=== PATIENT | female | born 1970 | race Caucasian/White ===

== ENCOUNTER 2017-12-02 10:41 | Emergency (ER) | payer OTHER ==
[~2017-12-02] VITALS: Ht 165.1 cm; Wt 100.7 kg
[2017-12-02] MEDS ORDERED: ALBU90OI6 INH (10:54)
[2017-12-02] MEDS ORDERED: Prednisone20 MG PO (11:33)
[2017-12-02] MEDS ORDERED: DULERA 200 MCG/13 GM INH (11:33)
[2017-12-02] MEDS ORDERED: Albuterol2.5 MG/0.5 INH (11:33)
[2017-12-02] MEDS ORDERED: ALBU90OI INH (11:33)
== END 2017-12-02 11:40 | disposition home or self-care (01) ==
LOC: ER 10:41
DX: Z76.0 Encounter for issue of repeat prescription (principal); J45.909 Unspecified asthma, uncomplicated; Z88.8 Allergy status to other drugs, medicaments and biological substances; Z79.51 Long term (current) use of inhaled steroids
CPT/HCPCS: 99283

== ENCOUNTER 2018-04-29 08:31 | Emergency (ER) | payer OTHER ==
[~2018-04-29] VITALS: Ht 165.1 cm; Wt 94.8 kg
[~2018-04-29 08:31] MED LIST: ALBU90OI INH; ALBU90OI6 INH; Albuterol2.5 MG/0.5 INH; DULERA 200 MCG/13 GM INH; EPIPEN0.3 MG/0.3 IM; Prednisone20 MG PO; TRIA15CR3 TOP
[2018-04-29] MEDS ORDERED: Proventil5 MG/1 ML INH (09:25)
[2018-04-29] MEDS ORDERED: DULERA 200 MCG/13 GM INH (09:25)
[2018-04-29] MEDS ORDERED: ALBU90OI INH (09:25)
[2018-04-29] MEDS ORDERED: TRIA15CR3 TOP (09:25)
== END 2018-04-29 10:18 | disposition home or self-care (01) ==
LOC: ER 08:31
DX: J45.901 Unspecified asthma with (acute) exacerbation (principal); L30.9 Dermatitis, unspecified; Z91.14 Patient's other noncompliance with medication regimen; J44.9 Chronic obstructive pulmonary disease, unspecified; Z88.8 Allergy status to other drugs, medicaments and biological substances; Z79.899 Other long term (current) drug therapy
CPT/HCPCS: 94644; 99281-25

== ENCOUNTER 2018-07-22 06:44 | Emergency (ER) | payer OTHER ==
[~2018-07-22] VITALS: Ht 167.6 cm; Wt 89.8 kg
[~2018-07-22 06:44] MED LIST changes: +Accuneb1.25 MG/3 INH; +Proventil5 MG/1 ML INH; +Zithromax250 MG PO
[2018-07-22] MEDS ORDERED: ASPI325 PO (07:08)
[2018-07-22] MEDS ORDERED: DULERA 100 MCG/13 GM INH (07:08)
[2018-07-22] MEDS ORDERED: ALBU90OI6 INH (09:27)
[2018-07-22] MEDS ORDERED: Prednisone20 MG PO (09:27)
== END 2018-07-22 09:43 | disposition home or self-care (01) ==
LOC: ER 06:44
DX: R05 Cough (principal); J44.1 Chronic obstructive pulmonary disease with (acute) exacerbation; Z88.8 Allergy status to other drugs, medicaments and biological substances; Z79.899 Other long term (current) drug therapy; Z79.82 Long term (current) use of aspirin; I10 Essential (primary) hypertension
CPT/HCPCS: 71046; 94640; 99283-25

== ENCOUNTER 2018-09-03 19:16 | Emergency (ER) | payer OTHER ==
[~2018-09-03] VITALS: Ht 165.1 cm; Wt 90.7 kg
[~2018-09-03 19:16] MED LIST changes: +ASPI325 PO; +DULERA 100 MCG/13 GM INH
[2018-09-03] MEDS ORDERED: ALBU90OI INH (21:22)
[2018-09-03] MEDS ORDERED: PRED10 PO (21:22)
[2018-09-03] MEDS ORDERED: Cyclobenzaprine5 MG PO (21:22)
== END 2018-09-03 21:51 | disposition home or self-care (01) ==
LOC: ER 19:16
DX: J45.901 Unspecified asthma with (acute) exacerbation (principal)
CPT/HCPCS: 71046; 94640; 99283-25

== ENCOUNTER 2019-01-01 07:38 | Emergency (ER) | payer OTHER ==
[~2019-01-01] VITALS: Ht 167.6 cm; Wt 96.2 kg
[~2019-01-01 07:38] MED LIST changes: +Cyclobenzaprine5 MG PO; +PRED10 PO
[2019-01-01 09:06] LABS: BASOPHILS ABSOLUTE AUTO 0.06 K/mm3 (0.00-0.23); BASOPHILS PERCENT AUTO 1 % (0-2); EOSINOPHILS ABSOLUTE AUTO 0.21 K/mm3 (0.00-0.68); EOSINOPHILS PERCENT AUTO 3 % (0-6); Hemoglobin 12.5 g/dL (11.5-16.0); IMMATURE GRAN ABSOLUTE AUTO 0.02 K/mm3 (0.00-0.10); IMMATURE GRAN PERCENT AUTO 0 % (0-1); LYMPHOCYTES ABSOLUTE AUTO 1.59 K/mm3 (0.84-5.20); LYMPHOCYTES PERCENT AUTO 25 % (21-46); MONOCYTES ABSOLUTE AUTO 0.77 K/mm3 (0.16-1.47); MONOCYTES PERCENT AUTO 12 % (4-13); Mean Corpuscular HGB 28.4 pg (26.0-34.0); Mean Corpuscular HGB Conc 32.1 g/dL (31.5-36.5); Mean Corpuscular Volume 89 fL (80-100); Mean Platelet Volume 12.3 fL (9.1-12.4); NEUTROPHILS ABSOLUTE AUTO 3.68 K/mm3 (1.96-9.15); NEUTROPHILS PERCENT AUTO 58 % (41-73); Platelet Count 289 K/mm3 (150-400); RDW Coefficient Variation 14.2 % (11.7-14.2); White Blood Cell Count 6.33 K/mm3 (4.00-11.30)
[2019-01-01 09:16] LABS: Alanine Aminotransfer (ALT/SGP 19 U/L (12-78); Albumin, Blood 3.4 g/dL (3.4-5.0); Alk Phos 70 U/L (50-136); Anion Gap 7 mmol/L (6-16); Aspartate Aminotrans (AST/SGOT 15 U/L (12-37); Bilirubin, Total 0.2 mg/dL (0.1-1.0); Blood Urea Nitrogen 13 mg/dL (8-24); Bun/Creatinine Ratio 20.3 (12.0-20.0); CO2, Blood 26 mmol/L (21-32); Calcium, Blood 8.4 mg/dL (8.5-10.1); Chloride, Blood 107 mmol/L (98-108); Creatinine, Blood 0.64 mg/dL (0.40-1.00); Globulin, Blood 3.4 g/dL (2.2-4.0); Glomerular Filtration Rate >60 (60-); Glucose, Blood 97 mg/dL (70-99); Potassium, Blood 3.7 mmol/L (3.5-5.5); Sodium, Blood 140 mmol/L (136-145); Total Protein, Blood 6.8 g/dL (6.4-8.2); Troponin I <0.015 ng/mL (0.000-0.040)
[2019-01-01] MEDS ORDERED: Prednisone20 MG PO (09:38)
[2019-01-01] MEDS ORDERED: ALBU90OI6 INH (09:38)
[2019-01-01] MEDS ORDERED: DULERA 100 MCG/13 G1 INH (09:38)
[2019-01-01] MEDS ORDERED: Proventil5 MG/1 ML INH (09:51)
== END 2019-01-01 10:15 | disposition home or self-care (01) ==
LOC: ER 07:38
PROVIDERS: Emergency Medicine
DX: J45.909 Unspecified asthma, uncomplicated (principal); I10 Essential (primary) hypertension; Z88.8 Allergy status to other drugs, medicaments and biological substances; Z79.899 Other long term (current) drug therapy
CPT/HCPCS: 80053; 84484; 85025; 93005; 93010; 94644; 96361; 96374; 99283-25; J2930; J7030

== ENCOUNTER 2019-03-22 09:02 | Emergency (ER) | payer OTHER ==
[~2019-03-22] VITALS: Ht 167.6 cm; Wt 81.7 kg
[~2019-03-22 09:02] MED LIST changes: +DULERA 100 MCG/13 G1 INH
[2019-03-22] MEDS ORDERED: ALBU90OI INH (11:12)
[2019-03-22] MEDS ORDERED: DULERA 100 MCG/13 G1 INH (11:12)
[2019-03-22] MEDS ORDERED: Ventolin5 MG/1 ML INH (11:12)
== END 2019-03-22 11:28 | disposition home or self-care (01) ==
LOC: ER 09:02
DX: J45.901 Unspecified asthma with (acute) exacerbation (principal); Z76.0 Encounter for issue of repeat prescription; Z88.8 Allergy status to other drugs, medicaments and biological substances; Z79.899 Other long term (current) drug therapy; I10 Essential (primary) hypertension; J44.9 Chronic obstructive pulmonary disease, unspecified
CPT/HCPCS: 94644; 99283-25

== ENCOUNTER 2019-04-22 16:52 | Emergency (ER) | payer OTHER ==
[~2019-04-22] VITALS: Ht 167.6 cm; Wt 99.8 kg
[~2019-04-22 16:52] MED LIST changes: +Ventolin5 MG/1 ML INH
[2019-04-22] MEDS ORDERED: Prednisone20 MG PO (18:08)
[2019-04-22] MEDS ORDERED: ALBU90OI INH (18:08)
[2019-04-22] MEDS ORDERED: EPIPEN 2-P0.3 MG/0.3 IM (18:08)
== END 2019-04-22 18:20 | disposition home or self-care (01) ==
LOC: ER 16:52
DX: L50.9 Urticaria, unspecified (principal); J44.9 Chronic obstructive pulmonary disease, unspecified; I10 Essential (primary) hypertension; Z88.8 Allergy status to other drugs, medicaments and biological substances; Z79.899 Other long term (current) drug therapy; Z79.52 Long term (current) use of systemic steroids
CPT/HCPCS: 94640; 99283-25; J1100; Q0163

== ENCOUNTER 2019-08-11 12:25 | Emergency (ER) | payer OTHER ==
[~2019-08-11] VITALS: Ht 165.1 cm; Wt 81.7 kg
[~2019-08-11 12:25] MED LIST changes: +EPIPEN 2-P0.3 MG/0.3 IM
[2019-08-11] MEDS ORDERED: EPIPEN 2-P0.3 MG/0.3 IM (13:01)
[2019-08-11] MEDS ORDERED: Mupirocin22 GM TOP (13:01)
[2019-08-11] MEDS ORDERED: ALBU90OI INH (13:01)
[2019-08-11] MEDS ORDERED: ALBU2.5V5 NEB (13:01)
[2019-08-11] MEDS ORDERED: DULERA 100 MCG/13 GM INH (13:01)
== END 2019-08-11 13:16 | disposition home or self-care (01) ==
LOC: ER 12:25
DX: J45.909 Unspecified asthma, uncomplicated (principal); Z76.0 Encounter for issue of repeat prescription; I10 Essential (primary) hypertension; Z88.8 Allergy status to other drugs, medicaments and biological substances; Z79.51 Long term (current) use of inhaled steroids; Z79.899 Other long term (current) drug therapy
CPT/HCPCS: 99281

== ENCOUNTER 2019-10-10 14:27 | Emergency (ER) | payer OTHER ==
[~2019-10-10] VITALS: Ht 167.6 cm; Wt 96.6 kg
[~2019-10-10 14:27] MED LIST changes: +ALBU2.5V5 NEB; +Mupirocin22 GM TOP
[2019-10-10] MEDS ORDERED: PRED20 PO (15:25)
[2019-10-10] MEDS ORDERED: ALBU90OI INH (15:25)
[2019-10-10] MEDS ORDERED: DULERA 200 MCG/13 GM INH (15:25)
[2019-10-10] MEDS ORDERED: ALBU2.5V5 INH (15:25)
== END 2019-10-10 15:49 | disposition home or self-care (01) ==
LOC: ER 14:27
DX: J45.909 Unspecified asthma, uncomplicated (principal); Z88.8 Allergy status to other drugs, medicaments and biological substances; Z79.899 Other long term (current) drug therapy; Z79.52 Long term (current) use of systemic steroids; I10 Essential (primary) hypertension
CPT/HCPCS: 94640; 99284-25; J7512

== ENCOUNTER 2020-01-01 11:15 | Emergency (ER) | payer OTHER ==
[~2020-01-01] VITALS: Ht 167.6 cm; Wt 90.7 kg
[~2020-01-01 11:15] MED LIST changes: +ALBU2.5V5 INH; +PRED20 PO
[2020-01-01 13:45] LABS: Alanine Aminotransfer (ALT/SGP 43 U/L (12-78); Albumin, Blood 3.4 g/dL (3.4-5.0); Albumin/Globulin Ratio 0.9 (0.8-1.8); Alk Phos 64 U/L (50-136); Anion Gap 4 mmol/L (6-16); Aspartate Aminotrans (AST/SGOT 34 U/L (12-37); Bilirubin, Total 0.3 mg/dL (0.1-1.0); Blood Urea Nitrogen 14 mg/dL (8-24); Bun/Creatinine Ratio 21.1 (12.0-20.0); CO2, Blood 26 mmol/L (21-32); Calcium, Blood 8.4 mg/dL (8.5-10.1); Chloride, Blood 108 mmol/L (98-108); Creatinine, Blood 0.66 mg/dL (0.40-1.00); Globulin, Blood 3.9 g/dL (2.2-4.0); Glomerular Filtration Rate >60 (60-); Glucose, Blood 132 mg/dL (70-99); Potassium, Blood 3.7 mmol/L (3.5-5.5); Sodium, Blood 138 mmol/L (136-145); Total Protein, Blood 7.3 g/dL (6.4-8.2)
[2020-01-01 14:08] LABS: BASOPHILS ABSOLUTE AUTO 0.04 K/mm3 (0.00-0.23); BASOPHILS PERCENT AUTO 0 % (0-2); EOSINOPHILS ABSOLUTE AUTO 0.11 K/mm3 (0.00-0.68); EOSINOPHILS PERCENT AUTO 1 % (0-6); Hematocrit 35.5 % (33.0-51.0); Hemoglobin 11.5 g/dL (11.5-16.0); IMMATURE GRAN ABSOLUTE AUTO 0.03 K/mm3 (0.00-0.10); IMMATURE GRAN PERCENT AUTO 0 % (0-1); LYMPHOCYTES ABSOLUTE AUTO 1.73 K/mm3 (0.84-5.20); LYMPHOCYTES PERCENT AUTO 18 % (21-46); MONOCYTES PERCENT AUTO 8 % (4-13); Mean Corpuscular HGB 29.5 pg (26.0-34.0); Mean Corpuscular HGB Conc 32.4 g/dL (31.5-36.5); Mean Corpuscular Volume 91 fL (80-100); Mean Platelet Volume 11.2 fL (9.1-12.4); NEUTROPHILS ABSOLUTE AUTO 6.84 K/mm3 (1.96-9.15); NEUTROPHILS PERCENT AUTO 72 % (41-73); Platelet Count 212 K/mm3 (150-400); RDW Coefficient Variation 15.8 % (11.7-14.2); RDW Standard Deviation 52.6 fL (35.1-46.3); White Blood Cell Count 9.55 K/mm3 (4.00-11.30)
[2020-01-01] MEDS ORDERED: FIORINAL 50-321 EACH PO (14:48)
[2020-01-01] MEDS ORDERED: PROC5 PO (14:48)
== END 2020-01-01 15:04 | disposition home or self-care (01) ==
LOC: ER 11:15
PROVIDERS: Physician Assistant
DX: R51 Headache (principal); Z88.8 Allergy status to other drugs, medicaments and biological substances; Z79.899 Other long term (current) drug therapy; J44.9 Chronic obstructive pulmonary disease, unspecified; I10 Essential (primary) hypertension; Z79.52 Long term (current) use of systemic steroids
CPT/HCPCS: 70450; 80053; 85025; 96361; 96374; 96375; 99285-25; J0780; J1200; J1885; J7030

== ENCOUNTER 2020-03-08 11:26 | Emergency (ER) | payer OTHER ==
[~2020-03-08] VITALS: Ht 167.6 cm; Wt 90.7 kg
[~2020-03-08 11:26] MED LIST changes: +FIORINAL 50-321 EACH PO; +PROC5 PO
[2020-03-08] MEDS ORDERED: SPACE CHAMBER1 EACH UD (12:50)
[2020-03-08] MEDS ORDERED: DELTASONE20 MG PO (12:50)
[2020-03-08] MEDS ORDERED: ALBU90OI INH (12:50)
== END 2020-03-08 13:00 | disposition home or self-care (01) ==
LOC: ER 11:26
DX: J45.901 Unspecified asthma with (acute) exacerbation (principal); I10 Essential (primary) hypertension; Z79.899 Other long term (current) drug therapy; Z88.8 Allergy status to other drugs, medicaments and biological substances
CPT/HCPCS: 94640; 99284; J7512

== ENCOUNTER 2020-06-06 13:08 | Inpatient (IN) | payer OTHER ==
[~2020-06-06] VITALS: Ht 167.6 cm; Wt 108.3 kg
[~2020-06-06 13:08] MED LIST changes: +DELTASONE20 MG PO; +SPACE CHAMBER1 EACH UD
[2020-06-06 14:01] LABS: BASOPHILS ABSOLUTE AUTO 0.04 K/mm3 (0.00-0.23); BASOPHILS PERCENT AUTO 0 % (0-2); EOSINOPHILS ABSOLUTE AUTO 0.11 K/mm3 (0.00-0.68); EOSINOPHILS PERCENT AUTO 1 % (0-6); Hematocrit 39.1 % (33.0-51.0); Hemoglobin 12.6 g/dL (11.5-16.0); IMMATURE GRAN ABSOLUTE AUTO 0.02 K/mm3 (0.00-0.10); IMMATURE GRAN PERCENT AUTO 0 % (0-1); LYMPHOCYTES ABSOLUTE AUTO 1.33 K/mm3 (0.84-5.20); LYMPHOCYTES PERCENT AUTO 15 % (21-46); MONOCYTES ABSOLUTE AUTO 0.64 K/mm3 (0.16-1.47); MONOCYTES PERCENT AUTO 7 % (4-13); Mean Corpuscular HGB Conc 32.2 g/dL (31.5-36.5); Mean Corpuscular Volume 90 fL (80-100); Mean Platelet Volume 12.4 fL (9.1-12.4); NEUTROPHILS ABSOLUTE AUTO 6.75 K/mm3 (1.96-9.15); NEUTROPHILS PERCENT AUTO 76 % (41-73); Platelet Count 226 K/mm3 (150-400); RDW Coefficient Variation 14.4 % (11.7-14.2); RDW Standard Deviation 47.9 fL (35.1-46.3); Red Blood Cell Count 4.35 M/mm3 (3.80-5.20); White Blood Cell Count 8.89 K/mm3 (4.00-11.30)
[2020-06-06 14:17] LABS: Alanine Aminotransfer (ALT/SGP 11 U/L (12-78); Albumin, Blood 3.2 g/dL (3.4-5.0); Albumin/Globulin Ratio 0.8 (0.8-1.8); Alk Phos 70 U/L (50-136); Anion Gap 7 mmol/L (6-16); Aspartate Aminotrans (AST/SGOT 5 U/L (12-37); Bilirubin, Total 0.1 mg/dL (0.1-1.0); Blood Urea Nitrogen 10 mg/dL (8-24); Bun/Creatinine Ratio 13.7 (12.0-20.0); CO2, Blood 25 mmol/L (21-32); Calcium, Blood 8.6 mg/dL (8.5-10.1); Chloride, Blood 108 mmol/L (98-108); Creatinine, Blood 0.73 mg/dL (0.40-1.00); Globulin, Blood 4.2 g/dL (2.2-4.0); Glomerular Filtration Rate >60 (60-); Glucose, Blood 121 mg/dL (70-99); Potassium, Blood 3.5 mmol/L (3.5-5.5); Sodium, Blood 140 mmol/L (136-145); Total Protein, Blood 7.4 g/dL (6.4-8.2); Troponin I <0.015 ng/mL (0.000-0.040)
[2020-06-06] MEDS ORDERED: DULERA 200 MCG-13 GM INH (20:05)
[2020-06-06] MEDS ORDERED: FLUT1DIS5 INH (21:55)
--- NOTE | 2020-06-06 22:33 | NUR ---
NEW ADMIT PT ARRIVED TO FLOOR AT 2223. TRANSFERED 1 ASSIST TO NEW BED, SERVICE DOG AT BEDSIDE, PT REPORTS SERVICE DOG IS FOR HTN & THAT SHE HAS PAPER WORK IN HER [place] FOR DOG. ORIENTED TO CALL LIGHT.
[2020-06-07 05:03] LABS: BASOPHILS ABSOLUTE AUTO 0.04 K/mm3 (0.00-0.23); BASOPHILS PERCENT AUTO 1 % (0-2); EOSINOPHILS ABSOLUTE AUTO 0.15 K/mm3 (0.00-0.68); EOSINOPHILS PERCENT AUTO 2 % (0-6); Hematocrit 33.8 % (33.0-51.0); Hemoglobin 10.9 g/dL (11.5-16.0); IMMATURE GRAN ABSOLUTE AUTO 0.02 K/mm3 (0.00-0.10); IMMATURE GRAN PERCENT AUTO 0 % (0-1); LYMPHOCYTES ABSOLUTE AUTO 1.46 K/mm3 (0.84-5.20); LYMPHOCYTES PERCENT AUTO 23 % (21-46); MONOCYTES ABSOLUTE AUTO 0.71 K/mm3 (0.16-1.47); MONOCYTES PERCENT AUTO 11 % (4-13); Mean Corpuscular HGB 29.1 pg (26.0-34.0); Mean Corpuscular HGB Conc 32.2 g/dL (31.5-36.5); Mean Corpuscular Volume 90 fL (80-100); NEUTROPHILS ABSOLUTE AUTO 3.85 K/mm3 (1.96-9.15); NEUTROPHILS PERCENT AUTO 62 % (41-73); Platelet Count 186 K/mm3 (150-400); RDW Coefficient Variation 14.4 % (11.7-14.2); RDW Standard Deviation 47.6 fL (35.1-46.3); Red Blood Cell Count 3.75 M/mm3 (3.80-5.20); White Blood Cell Count 6.23 K/mm3 (4.00-11.30)
[2020-06-07 05:37] LABS: Alanine Aminotransfer (ALT/SGP 11 U/L (12-78); Albumin, Blood 2.7 g/dL (3.4-5.0); Albumin/Globulin Ratio 0.8 (0.8-1.8); Alk Phos 59 U/L (50-136); Anion Gap 6 mmol/L (6-16); Aspartate Aminotrans (AST/SGOT 7 U/L (12-37); Bilirubin, Total 0.1 mg/dL (0.1-1.0); Blood Urea Nitrogen 13 mg/dL (8-24); Bun/Creatinine Ratio 18.4 (12.0-20.0); CO2, Blood 25 mmol/L (21-32); Calcium, Blood 8.3 mg/dL (8.5-10.1); Chloride, Blood 111 mmol/L (98-108); Creatinine, Blood 0.71 mg/dL (0.40-1.00); Globulin, Blood 3.4 g/dL (2.2-4.0); Glomerular Filtration Rate >60 (60-); Glucose, Blood 95 mg/dL (70-99); Potassium, Blood 3.5 mmol/L (3.5-5.5); Sodium, Blood 142 mmol/L (136-145); Total Protein, Blood 6.1 g/dL (6.4-8.2)
--- NOTE | 2020-06-07 06:36 | NUR ---
SHIFT SUMMARY AOX4. VSS. ADMITTED FOR CELLULITIS R/T DOG BITE ON LLE. LLE IS WARM, RED, +1 EDEMA, TENDER TO LIGHT TOUCH, HAS SMALL AMOUNT SEROSANGUINEOUS DRAINAGE, FOUL ODOR PRESENT. REDNESS WAS OUTLINED c MARKER IN ER & HAS ALREADY SUBSIDED BELOW OUTLINE. CLEANSED, TOOK PIC OF WOUND. REPORTS 6-03/06 CONSTANT THROBBING, SHOOTING PAIN, MEDICATED 2X c 50MCG FENTANYL. THIS AM 1 HR AFTER RECIEVING FENTANYL PT STATED SHE HAD INCREASED PAIN AGAIN, INFORMED DR WALL & HE ORDERED 1-2MG IV DILAUDID PRN. WENT INTO PTS ROOM TO GIVE PAIN MED & PT WAS RESTING, WILL INFORM ONCOMING NURSE. PT HAS A FRIENDLY SERVICE DOG @BEDSIDE. RECIEVING IV ANTIBIOTICS. 1 ASSIST c FWW FOR TRANSFERS. CALL LIGHT IN REACH & PT ABLE TO MAKE NEEDS KNOWN.
--- NOTE | 2020-06-07 16:35 | NUR ---
SHIFT SUMMARY WOUND CARE COMPLETED THIS SHIFT. PT HAD CT OF LLE DONE AND ORTHO CONSULTED. DR. SAINZ IN TO SEE PT AND ORDERED TO BE NPO AFTER MIDNIGHT FOR DEBRIDEMENT TOMORROW. COVID NEGATIVE. PT HAVING SIGNIFICANT PAIN IN LLE. SEE EMAR FOR PAIN MERCHANDISE DIRECTOR. PT IN GOOD SPIRITS T/O DAY. SUPPORT DOG IN ROOM, BUT LEAVING FOR THE NIGHT. DR. BUENROSTRO ORDERED AMBIEN FOR SLEEP TONIGHT TO HELP WITH THE DOG BEING GONE. NO CHANGES IN ASSESSMENT AT THIS TIME. VS REVIEWED. WILL CONTINUE TO MONTIOR UNTIL TURNOVER IS COMPLETE.
--- NOTE | 2020-06-08 06:46 | NUR ---
SHIFT SUMMARY PT A/O X4, IND IN ROOM. PAIN MANAGED WITH IV DILAUDED PER ORDERS. DRESSING TO LLE CHANGED X3 LAST NIGHT. PT NPO AT MIDNIGHT FOR SURGERY TODAY. CALL LIGHT IN REACH. RESTING IN BED AT THIS TIME.
--- NOTE | 2020-06-08 12:23 | NUR ---
Patient tells me her concerns about her upcoming procedure and about her concerns about being released too soon after because [place] the grid far [place] from help or signal. 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 I provide therapeutic listening and presurgery prayer. Patient responds well and states that she has much more peace. I will continue to remain available to patient and family.
--- NOTE | 2020-06-08 15:44 | NUR ---
Patient up to Ambulate independently. Gait steady. History, Chart, Medications and Allergies reviewed before start of procedure.Lungs clear T/O to Auscultation. Patient confirms NPO status and agrees with scheduled surgery. PT ON PERIOD, UNDERWEAR WITH ISAAK PAD IN PLACE.
--- NOTE | 2020-06-08 19:18 | NUR ---
Shift Summary A/Ox4, cooperative with care. Patient had I&D to LLE, reporting burning pain after procedure. Will medicate per EMAR and continue to monitor. Up to bathroom with SBA, calls appropriately for needs. Medicated for pain x 3 with good, but short relief. Also medicated once for nausea after arrival back from procedure. Lovenox held for procedure this morning. Patient appears anxious at times, frequent reassurance and rounding provided. Report given to oncoming RN.
--- NOTE | 2020-06-09 04:40 | NUR ---
SHIFT SUMMARY PT S/P I&D OF LLE AFTER DOG BITE. PT CONTINUES TO HAVE PAIN IN HER LEG, AND STATES THE PAIN IS INCREASED WITH MOVEMENT AND AMBULATION, A RESULT PT HAS NOT PUT ANY WEIGHT ON HER LEG AND HAS USED A WALKER TO GET TO AND FROM THE BATHROOM INDEPENDENTLY. PT MEDICATED FOR PAIN PRN PER ORDERS WITH AFFECT. IV ABX CONTINUED ORDERED. NO ACUTE CHANGES TO REPORT OVERNIGHT. BED IN LOWEST POSITION, CALL LIGHT WITHIN REACH.
--- NOTE | 2020-06-09 11:30 | NUR ---
UNTIL AFTER HER DOG LEAVES THE ROOM, CALL LIGHT IN REACH.
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
--- NOTE | 2020-06-10 03:42 | NUR ---
SUMMARY PT HAD DRESSING CHANGE BY DR PAREKH AT BEGINNING OF SHIFT. PT WAS MEDICATED FOR PAIN AFTERWARDS. PT HAS SLEPT OFF AND ON T/O SHIFT. PT HAS HAD EPISODES OF PAIN T/O SHIFT. PT PAIN IS BEING CONTROLLED WELL. PT HAS STATED SHE IS CONCERNED ABOUT BEING ABLE TO CARE FOR SELF IF SHE WAS TO BE DISCHARGED. WILL PASS ON TO DAY RN THIS CONCERN. PT CURRENTLY SLEEPING AND BREATHING EASY. CALL LIGHT IN REACH.
--- NOTE | 2020-06-11 04:19 | NUR ---
BOARD CERTIFIED ORTHODONTIST SUMMARY PT A&OX4, ABLE TO MAKE NEEDS KNOWN. PLEASANT AND COOPERATIVE TO CARE. MEDICATED FOR PAIN PER EMAR. NO C/O CP, SOB, AND N&V. DRESSING TO L CALF AREA CDI. PT CALM AND RESTED IN BED T/O SHIFT. BED AT LOWEST POSITION. CALL LIGHT WITHIN REACH.
--- NOTE | 2020-06-11 15:28 | NUR ---
SHIFT SUMMARY REMAINS ANXIOUS REGARDING WOUND/WOUND DRESSING CHANGES. MD AWARE PT IS WORKING TOWARDS CHANGING OWN DRESSINGS, HH IS NOT AN OPTION 2NDARY TO REMOTE LOCATION OF HOME. PT TOOK VIDEO OF DRESSING CHANGE WITH DR. PAREKH AND HAS BEEN REVIEWING. PT IS FEELING MORE CONFIDENT BUT STILL RESISTANT 2NDARY TO PAIN AND NAUSEATED FEELING ASSOCIATED WITH SEEING THE WOUND. ANTIBX AND PAIN MEDS DE-ESCALATED TO PO. MD PHILIP, NOTIFIED THAT PT REPORTS PAIN UNCONTROLLED.
--- NOTE | 2020-06-12 04:26 | NUR ---
RESIDENT CARE SPEC SUMMARY PT A&OX4, ABLE TO MAKE NEEDS KNOWN. PLEASANT AND COOPERATIVE TO CARE. PT CONT TO C/O PAIN ON WOUND ON L LEG. MEDICATED PER EMAR. PT INDEPENDENT IN ROOM. DENIES CP, SOB, OR N/V. STARTED ON PO AUGMENTIN THIS SHIFT ORDERED, NO ASE NOTED. DRESSING TO L LEG WOUND CDI. PT CALM AND RESTED IN BED AT THIS TIME. BED AT LOWEST POSITION. CALL LIGHT WITHIN REACH.
[2020-06-12 05:59] LABS: BASOPHILS ABSOLUTE AUTO 0.05 K/mm3 (0.00-0.23); BASOPHILS PERCENT AUTO 1 % (0-2); EOSINOPHILS ABSOLUTE AUTO 0.24 K/mm3 (0.00-0.68); EOSINOPHILS PERCENT AUTO 4 % (0-6); Hematocrit 35.3 % (33.0-51.0); Hemoglobin 11.2 g/dL (11.5-16.0); IMMATURE GRAN ABSOLUTE AUTO 0.02 K/mm3 (0.00-0.10); IMMATURE GRAN PERCENT AUTO 0 % (0-1); LYMPHOCYTES ABSOLUTE AUTO 1.49 K/mm3 (0.84-5.20); LYMPHOCYTES PERCENT AUTO 23 % (21-46); MONOCYTES ABSOLUTE AUTO 0.56 K/mm3 (0.16-1.47); MONOCYTES PERCENT AUTO 9 % (4-13); Mean Corpuscular HGB 28.8 pg (26.0-34.0); Mean Corpuscular HGB Conc 31.7 g/dL (31.5-36.5); Mean Corpuscular Volume 91 fL (80-100); Mean Platelet Volume 11.8 fL (9.1-12.4); NEUTROPHILS ABSOLUTE AUTO 4.15 K/mm3 (1.96-9.15); NEUTROPHILS PERCENT AUTO 64 % (41-73); Platelet Count 262 K/mm3 (150-400); RDW Standard Deviation 46.7 fL (35.1-46.3); Red Blood Cell Count 3.89 M/mm3 (3.80-5.20); White Blood Cell Count 6.51 K/mm3 (4.00-11.30)
[2020-06-12 06:16] LABS: Albumin, Blood 2.9 g/dL (3.4-5.0); Anion Gap 6 mmol/L (6-16); Blood Urea Nitrogen 18 mg/dL (8-24); Bun/Creatinine Ratio 26.3 (12.0-20.0); CO2, Blood 26 mmol/L (21-32); Calcium, Blood 8.7 mg/dL (8.5-10.1); Chloride, Blood 106 mmol/L (98-108); Creatinine, Blood 0.69 mg/dL (0.40-1.00); Glomerular Filtration Rate >60 (60-); Glucose, Blood 101 mg/dL (70-99); Magnesium, Blood 2.4 mg/dL (1.6-2.4); Phosphorus, Blood 4.8 mg/dL (2.5-4.9); Potassium, Blood 4.3 mmol/L (3.5-5.5); Sodium, Blood 138 mmol/L (136-145)
--- NOTE | 2020-06-12 11:06 | NUR ---
AM ASSESSMENT I AGREE WITH THE STUDENT NURSE ASSESSMENT FOR THIS AM DONE BY SN AGRAWAL
--- NOTE | 2020-06-12 11:47 | NUR ---
Upon receiving am admit referral for spiritual care, I visit patient. Patient is lying in bed and alert. Patient tells me her frustration with her care. I provide therapeutic listening and a calming presence. I also suggest talking to our patient advocate which patient is amenable to. I will continue to remain available to patient and family. I try to contact Patient Advocate Amalia but I get no response. I will continue to reach out to Amalia.
--- NOTE | 2020-06-12 12:22 | NUR ---
Met. pt.sitting up in bed playing wiyh her dog pt. reports doing much better offered prayers.
--- NOTE | 2020-06-12 17:30 | NUR ---
A&OX4, INDEPENDENT IN ROOM, PLEASANT & COPERATIVE WITH CARE. PT DENIES SOB, N/V. PT WITH CONSTANT PAIN TO LLE FROM DOG BITE WOUND. PAIN MANAGED WELL WITH CURRENT ORDERS. WOUND DRESSING C/D/I. NO OTHER CHANGES OR CONCERNS.
--- NOTE | 2020-06-13 04:11 | NUR ---
VIDEO MANAGER SUMMARY PT A/OX4, ABLE TO MAKE NEEDS KNOWN. PLEASANT AND COOPERATIVE TO CARE. PT MEDICATED FOR PAIN ON WOUND ON LLE PER EMAR. NO C/O CP, SOB, OR N/V. PT INDEPENDENT IN ROOM. PT ON IV ABX UNASYN, NO ASE NOTED. STARTED AT MIDNIGHT, PT NPO ORDERED. CALM AND RESTED IN BED AT THIS TIME. CALL LIGHT WITHIN REACH. WILL CONT TO MONITOR FOR CHANGES.
--- NOTE | 2020-06-13 12:40 | NUR ---
INTO [facility] VIA BED FROM [facility] FLOOR. History, Chart, Medications and Allergies reviewed before start of procedure.Patient confirms NPO status and agrees with scheduled surgery. Lungs clear T/O to Auscultation.A&O X4.
--- NOTE | 2020-06-13 12:42 | NUR ---
VASCULAR ACCESS 22G R FOREARM D/C DUE TO NOT PATENT. D/C WNL.
--- NOTE | 2020-06-13 13:27 | NUR ---
Pt. is doing much better and is resting in bed offered prayers
--- NOTE | 2020-06-13 13:44 | NUR ---
06/13/20 1344 Nellie Smyth PT ON SCHEDULED ABX.
--- NOTE | 2020-06-13 17:04 | NUR ---
PT IS A/OX3, PLEASANT AND COOPERATIVE, THE PT IS UP WITH MINIMAL ASSIST TO THE BATHROOM, THE PT APPEARS TO BE BREATHING EASILY ON RA AT THIS TIME, THE PT HAD A DEBRIDIEMENT PROCEDURE DONE TODAY APPEARS TO HAVE TOLERATED THE PROCEDURE WELL, VSS, THE PT NOW HAS A WOUND VAC ATTATCHED AND SECURE TO HER LEFT CALF, THE PT WAS MEDICATED FOR PAIN IN HER LEFT LLE T/O THE DAY, CALL LIGHT IN REACH WILL CONTINUE TO MONITOR AND ASSESS FOR CHANGES
--- NOTE | 2020-06-14 06:43 | NUR ---
SHIFT SUMMARY PT IS A 50 Y/O FEMALE, ADMITTED FOR LLE CELLULITIS FROM A DOG BITE. SHE IS A&O X 4, SBA/INDEPENDENT TO THE BATHROOM. PT HAD A SECOND SURGICAL I&D OF HER L LEG YESTERDAY, AND WOUND VAC WAS PLACED. MINIMAL SANGUINOUS OUTPUT NOTED IN WOUND VAC. PT REPORTED CONTINUOUS PAIN IN HER LLE, AND WAS MEDICATED ONCE WITH PRN PO DILAUDID, AND X3 WITH PRN IV DILAUDID. NO C/O NAUSEA OR SOB. VITAL SIGNS STABLE. NO ACUTE CHANGES IN PT CONDITION NOTED DURING THE NIGHT. WILL CONTINUE TO MONITOR AND TREAT PER EMAR UNTIL HAND OFF TO DAY SHIFT RN.
--- NOTE | 2020-06-14 09:03 | NUR ---
PT VOICED CONCERN THAT WOUND VAC NOT WORKING. THIS NURSE AND TWO OTHERS INSPECTED IT AND FOUND IT TO BE WORKING PROPERLY. WILL GET A NEW BASE AND SEE IF THIS MAKES PT FEEL MORE SECURE. LINE HAS DRAINAGE IN IT BUT PT IS CONCERNED IT SHOULD BE DRANING INTO CANISTER. SHE HAS STATED SHE KNOWS MACHINES AND SHE KNOWS THIS ONE ISNT WORKING.
--- NOTE | 2020-06-14 12:22 | NUR ---
met pt. in bed resting she reports doing much btter and is happy for that encouraged pt. and offered prayers.
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
--- NOTE | 2020-06-14 17:18 | NUR ---
PT ALERT AND ORIENTED. SHE IS ABLE TO AMBULATE SAFELY AROUND HER ROOM AND OUTSIDE. PT HAS SERVICE DOG IN THE ROOM. NO FURTHER COMPLAINTS ON WOUND VAC WHICH IS PATENT . PT HAS REQUESTED PAIN MEDS NEEDED. NO COMPLAINTS OF SOB OR NV. CALL LIGHT WITH IN REACH.
--- NOTE | 2020-06-15 04:45 | NUR ---
PRESIDENT AND CHIEF COMMERCIAL OFFICER SUMMARY ALERT AND ORIENTED X4. C/O BURNING PAIN TO LLE, WOUND VAC DRESSING C/D/I. MEDICATED PER EMAR. SERVICE DOG WITH PATIENT IN ROOM. NO ACUTE CHANGES AT THIS TIME. BED IN LOWEST POSITION WITH CALL LIGHT IN REACH. WILL CONTINUE TO MONITOR AND REPORT TO ONCOMING RN.
--- NOTE | 2020-06-16 04:33 | NUR ---
PERSONNEL AND PAYROLL TECHNICIAN SUMMARY ALERT AND ORIENTED. APPEARED TO SLEEP T/O SHIFT. WOUND VAC TO LLE CHANGED PRIOR TO BEGINNING OF SHIFT. C/O BURNING PAIN IN THE AREA, MEDICATED PER EMAR. NO ACUTE CHANGES AT THIS TIME. BED IN LOWEST POSITION WITH CALL LIGHT IN REACH. WILL CONTINUE TO MONITOR AND REPORT TO ONCOMING RN.
[2020-06-16 05:37] LABS: BASOPHILS ABSOLUTE AUTO 0.06 K/mm3 (0.00-0.23); BASOPHILS PERCENT AUTO 1 % (0-2); EOSINOPHILS ABSOLUTE AUTO 0.18 K/mm3 (0.00-0.68); EOSINOPHILS PERCENT AUTO 3 % (0-6); Hematocrit 32.3 % (33.0-51.0); Hemoglobin 10.3 g/dL (11.5-16.0); IMMATURE GRAN ABSOLUTE AUTO 0.03 K/mm3 (0.00-0.10); IMMATURE GRAN PERCENT AUTO 1 % (0-1); LYMPHOCYTES ABSOLUTE AUTO 1.87 K/mm3 (0.84-5.20); LYMPHOCYTES PERCENT AUTO 31 % (21-46); MONOCYTES ABSOLUTE AUTO 0.63 K/mm3 (0.16-1.47); MONOCYTES PERCENT AUTO 10 % (4-13); Mean Corpuscular HGB 28.9 pg (26.0-34.0); Mean Corpuscular HGB Conc 31.9 g/dL (31.5-36.5); Mean Corpuscular Volume 91 fL (80-100); Mean Platelet Volume 11.9 fL (9.1-12.4); NEUTROPHILS ABSOLUTE AUTO 3.33 K/mm3 (1.96-9.15); NEUTROPHILS PERCENT AUTO 55 % (41-73); Platelet Count 262 K/mm3 (150-400); RDW Standard Deviation 46.7 fL (35.1-46.3); Red Blood Cell Count 3.57 M/mm3 (3.80-5.20)
[2020-06-16 06:16] LABS: Albumin, Blood 2.8 g/dL (3.4-5.0); Anion Gap 6 mmol/L (6-16); Blood Urea Nitrogen 25 mg/dL (8-24); Bun/Creatinine Ratio 33.8 (12.0-20.0); CO2, Blood 26 mmol/L (21-32); Calcium, Blood 8.3 mg/dL (8.5-10.1); Chloride, Blood 106 mmol/L (98-108); Creatinine, Blood 0.74 mg/dL (0.40-1.00); Glomerular Filtration Rate >60 (60-); Glucose, Blood 98 mg/dL (70-99); Phosphorus, Blood 4.7 mg/dL (2.5-4.9); Sodium, Blood 138 mmol/L (136-145)
--- NOTE | 2020-06-17 04:48 | NUR ---
SHIFT SUMMARY NO ACUTE CHANGES THIS SHIFT. PT IS A&O X4, IND IN THE ROOM, CALLS APPROPRIATELY. SERVICE DOG AT BEDSIDE. MEDICATED PT X2 FOR PAIN, OTHERWISE NO OTHER COMPLAINTS. PT IS CURRENTLY WALKING DOG. WILL CONTINUE TO MONITOR PT UNTIL REPORT GIVEN TO DAY RN.
--- NOTE | 2020-06-17 19:25 | NUR ---
Shift Summary A/Ox4, medicated x 5 for pain with IV/PO dilaudid. Per patient state, PO dilaudid does not work. Pain assessment remains high at 8/10 with PO pain med. Therapy dog at bedside. Wound vac dressing changed by Dr. Reich today. Verbal order received by Dr. Riech for patient to be NPO midnight on Monday 06/18 for suture placement to LLE wound, order updated. No additional concerns, report given to oncoming RN.
--- NOTE | 2020-06-18 04:17 | NUR ---
SHIFT SUMMARY NO ACUTE CHANGES THIS SHIFT. MEDICATED FOR PAIN X2. PT SLEPT WELL T/O SHIFT. PT IS A&O X4, IND IN ROOM AND CALLS APPROPRIATELY. PT IS LAYING IN BED WITH EYES CLOSED, EVEN AND UNLABORED RESPIRATIONS. BED IN LOWERED POSITION WITH SIDE RAILS UP X2. CALL LIGHT AND PERSONAL ITEMS WITH IN REACH. NO APPARENT NEEDS OR DISTRESS AT THIS TIME, WILL CONTINUE TO MONITOR UNTIL REPORT GIVEN TO DAY RN.
[2020-06-18 05:34] LABS: BASOPHILS ABSOLUTE AUTO 0.05 K/mm3 (0.00-0.23); BASOPHILS PERCENT AUTO 1 % (0-2); EOSINOPHILS ABSOLUTE AUTO 0.22 K/mm3 (0.00-0.68); EOSINOPHILS PERCENT AUTO 3 % (0-6); Hematocrit 34.3 % (33.0-51.0); IMMATURE GRAN ABSOLUTE AUTO 0.03 K/mm3 (0.00-0.10); IMMATURE GRAN PERCENT AUTO 1 % (0-1); LYMPHOCYTES PERCENT AUTO 26 % (21-46); MONOCYTES ABSOLUTE AUTO 0.52 K/mm3 (0.16-1.47); MONOCYTES PERCENT AUTO 8 % (4-13); Mean Corpuscular HGB 29.1 pg (26.0-34.0); Mean Corpuscular HGB Conc 32.1 g/dL (31.5-36.5); Mean Corpuscular Volume 91 fL (80-100); Mean Platelet Volume 11.6 fL (9.1-12.4); NEUTROPHILS ABSOLUTE AUTO 4.03 K/mm3 (1.96-9.15); NEUTROPHILS PERCENT AUTO 61 % (41-73); Platelet Count 290 K/mm3 (150-400); RDW Coefficient Variation 13.9 % (11.7-14.2); RDW Standard Deviation 46.5 fL (35.1-46.3); Red Blood Cell Count 3.78 M/mm3 (3.80-5.20); White Blood Cell Count 6.55 K/mm3 (4.00-11.30)
[2020-06-18 05:56] LABS: Anion Gap 5 mmol/L (6-16); Blood Urea Nitrogen 21 mg/dL (8-24); Bun/Creatinine Ratio 26.9 (12.0-20.0); CO2, Blood 29 mmol/L (21-32); Calcium, Blood 8.6 mg/dL (8.5-10.1); Chloride, Blood 106 mmol/L (98-108); Creatinine, Blood 0.78 mg/dL (0.40-1.00); Glomerular Filtration Rate >60 (60-); Glucose, Blood 91 mg/dL (70-99); Potassium, Blood 4.3 mmol/L (3.5-5.5); Sodium, Blood 140 mmol/L (136-145)
--- NOTE | 2020-06-18 17:24 | NUR ---
Shift Summary Ambulating out of room x 3 this shift, tolerating well. Therapy dog at bedside for support. Based on yesterday's pain assessments of PO Dilaudid, this RN discussed possibility of changing to a more effective oral pain medication. Patient declined stating PO Dilaudid is working great and request no changes be made to EMAR with regard to pain management. Medicated x 1 with PO and x 2 with IV Dilaudid per patient request, all were effective today with managing pain. Wound vac therapy in place. No new concerns. Will continue to monitor.
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
[2020-06-19 05:53] LABS: BASOPHILS ABSOLUTE AUTO 0.05 K/mm3 (0.00-0.23); BASOPHILS PERCENT AUTO 1 % (0-2); EOSINOPHILS PERCENT AUTO 3 % (0-6); Hematocrit 32.4 % (33.0-51.0); Hemoglobin 10.6 g/dL (11.5-16.0); IMMATURE GRAN ABSOLUTE AUTO 0.02 K/mm3 (0.00-0.10); IMMATURE GRAN PERCENT AUTO 0 % (0-1); LYMPHOCYTES ABSOLUTE AUTO 1.62 K/mm3 (0.84-5.20); LYMPHOCYTES PERCENT AUTO 25 % (21-46); MONOCYTES ABSOLUTE AUTO 0.66 K/mm3 (0.16-1.47); MONOCYTES PERCENT AUTO 10 % (4-13); Mean Corpuscular HGB 29.4 pg (26.0-34.0); Mean Corpuscular HGB Conc 32.7 g/dL (31.5-36.5); Mean Corpuscular Volume 90 fL (80-100); NEUTROPHILS ABSOLUTE AUTO 3.87 K/mm3 (1.96-9.15); NEUTROPHILS PERCENT AUTO 60 % (41-73); Platelet Count 271 K/mm3 (150-400); RDW Standard Deviation 46.1 fL (35.1-46.3); Red Blood Cell Count 3.61 M/mm3 (3.80-5.20); White Blood Cell Count 6.42 K/mm3 (4.00-11.30)
[2020-06-19 06:18] LABS: Anion Gap 4 mmol/L (6-16); Blood Urea Nitrogen 20 mg/dL (8-24); Bun/Creatinine Ratio 30.4 (12.0-20.0); CO2, Blood 27 mmol/L (21-32); Calcium, Blood 8.8 mg/dL (8.5-10.1); Chloride, Blood 107 mmol/L (98-108); Creatinine, Blood 0.66 mg/dL (0.40-1.00); Glomerular Filtration Rate >60 (60-); Glucose, Blood 89 mg/dL (70-99); Potassium, Blood 4.1 mmol/L (3.5-5.5); Sodium, Blood 138 mmol/L (136-145)
--- NOTE | 2020-06-19 11:10 | NUR ---
Met. pt in bed resting and waiting for her surgery today encouraged pt and ptrayed fo her .
--- NOTE | 2020-06-19 14:57 | NUR ---
06/19/20 1456 Arnel Ortiz PATIENT ON SCHEDULED ANTIBIOTICS
--- NOTE | 2020-06-19 19:31 | NUR ---
Shift Summary Patient had I/D with wound closure. Report from OR-RN Renato stating piotr placed for drainage. Medicated for pain x 4 with adequate relief both for oral and IV pain meds. Denies nausea, vomiting, diarrhea. Tolerated dinner well. No acute changes, planning for discharge home tomorrow 06/20/20.
--- NOTE | 2020-06-20 04:41 | NUR ---
SUPERVISOR OF RESEARCH SUMMARY PT A&OX4, ABLE TO MAKE NEEDS KNOWN. PLEASANT AND COOPERATIVE TO CARE. SERVICE DOG AT BEDSIDE. MEDICATED FOR LLE PAIN PER EMAR. DRESSING TO LLE WOUND CDI. DENIES CP, SOB, OR N&V. PT ON PO AUGMENTIN, NO ASE NOTED. INDEPENDENT IN ROOM. CALL LIGHT WITHIN REACH. WILL CONT TO MONITOR PT FOR ANY CHANGES.
[2020-06-20 05:45] LABS: BASOPHILS ABSOLUTE AUTO 0.01 K/mm3 (0.00-0.23); BASOPHILS PERCENT AUTO 0 % (0-2); EOSINOPHILS PERCENT AUTO 0 % (0-6); Hematocrit 34.3 % (33.0-51.0); IMMATURE GRAN ABSOLUTE AUTO 0.04 K/mm3 (0.00-0.10); IMMATURE GRAN PERCENT AUTO 0 % (0-1); LYMPHOCYTES ABSOLUTE AUTO 0.81 K/mm3 (0.84-5.20); LYMPHOCYTES PERCENT AUTO 7 % (21-46); MONOCYTES PERCENT AUTO 5 % (4-13); Mean Corpuscular HGB 28.6 pg (26.0-34.0); Mean Corpuscular HGB Conc 32.1 g/dL (31.5-36.5); Mean Corpuscular Volume 89 fL (80-100); Mean Platelet Volume 12.1 fL (9.1-12.4); NEUTROPHILS ABSOLUTE AUTO 10.33 K/mm3 (1.96-9.15); NEUTROPHILS PERCENT AUTO 88 % (41-73); Platelet Count 305 K/mm3 (150-400); RDW Standard Deviation 45.8 fL (35.1-46.3); Red Blood Cell Count 3.84 M/mm3 (3.80-5.20); White Blood Cell Count 11.79 K/mm3 (4.00-11.30)
[2020-06-20] MEDS ORDERED: ACET325 PO (11:37)
[2020-06-20] MEDS ORDERED: Percocet 5-3251 EACH PO (11:37)
[2020-06-20] MEDS ORDERED: AMOCLA875 PO (11:37)
[2020-06-20] MEDS ORDERED: VISBIOME PROBIOTIC PO (11:38)
--- NOTE | 2020-06-20 12:14 | NUR ---
PT DISCHARGED PT DISCHARGED AT 1205. AQUASEAL PLACED TO WOUND PER DR. LYNNE VERBAL TELEPHONE ORDER. PT GIVEN EXTRA IN CASE CURRENT DRESSING COMES OFF. PT MEDS FAXED TO [facility] IN [place] AND HARD SCRIPT GIVEN TO PT. PT EDUCATED ON NEW MEDICATIONS AND FOLLOW UP APPOINTMENTS. PT DENIES FURTHER QUESTIONS AT THIS TIME. PT ESCORTED OUT BY THIS RN TO CAR. GONZALEZ TO DRIVE HER TO [facility].
--- NOTE | 2020-06-20 15:13 | NUR ---
Pt is doing well and is discharged for good wished her all the best.
== END 2020-06-20 12:06 | disposition home or self-care (01) | DRG 854 ==
LOC: ER 13:08 → MEDS 13:09
PROVIDERS: Emergency Medicine; Family Medicine; Internal Medicine; Orthopaedic Surgery; ADMIT Internal Medicine
PROC: 0JBP0ZZ Excision of Left Lower Leg Subcutaneous Tissue and Fascia, Open Approach (ICD-10-PCS; principal; 2020-06-08 07:30)
PROC: 0JDP0ZZ Extraction of Left Lower Leg Subcutaneous Tissue and Fascia, Open Approach (ICD-10-PCS; 2020-06-13)
PROC: 0J9P00Z Drainage of Left Lower Leg Subcutaneous Tissue and Fascia with Drainage Device, Open Approach (ICD-10-PCS; 2020-06-19)
DX: A28.0 Pasteurellosis (principal); L03.115 Cellulitis of right lower limb; I96 Gangrene, not elsewhere classified; S81.859A Open bite, unspecified lower leg, initial encounter; W54.0XXA Bitten by dog, initial encounter; I07.1 Rheumatic tricuspid insufficiency; J44.9 Chronic obstructive pulmonary disease, unspecified; I10 Essential (primary) hypertension; Z20.828 Contact with and (suspected) exposure to other viral communicable diseases; E66.9 Obesity, unspecified; Z68.35 Body mass index [BMI] 35.0-35.9, adult
CPT/HCPCS: 36415; 73590; 73600; 73701; 80048; 80053; 80069; 83605; 83735; 84484; 85025; 87040; 87071; 87075; 87077; 87205; 93005; 93010; 94640; 94664; 94667; 94668; 94760; 96365; 96366; 96367; 96375; 96376; 98960; 99284-25; A9270; G0378; J0295; J0696; J1100; J1170; J1650; J1885; J2250; J2405; J2704; J3010; J3370; J7030; J7050; J7120; Q9967; U0004

== ENCOUNTER 2021-07-12 14:12 | Emergency (ER) | payer OTHER ==
[~2021-07-12 14:12] MED LIST changes: +ACET325 PO; +AMOCLA875 PO; +DULERA 200 MCG-13 GM INH; +FLUT1DIS5 INH; +Percocet 5-3251 EACH PO; +VISBIOME PROBIOTIC PO
== END 2021-07-12 15:40 | disposition left against medical advice (07) ==
LOC: ER 14:12
DX: Z53.21 Procedure and treatment not carried out due to patient leaving prior to being seen by health care provider (principal)

== ENCOUNTER → 2024-10-25 | Outpatient (CLI) | payer OTHER ==
[2024-10-26 10:22] LABS: U Amphetamine Screen Not Detected; U Barbituate Screen Not Detected; U Benzodiazapine Screen Not Detected; U Buprenorphine Screen Not Detected; U Cannabinoids Screen Not Detected; U Cocaine Screen Not Detected; U Methadone Screen Not Detected; U Methamphetamine Screen Not Detected; U Opiates Screen Not Detected; U Oxycodone Screen Not Detected; U Phencyclidine Screen Not Detected
== END ==
LOC: LAB 15:09 → LAB SHORT 15:09
PROVIDERS: Nurse Practitioner Family
DX: Z51.81 Encounter for therapeutic drug level monitoring (principal); Z79.899 Other long term (current) drug therapy